=== PATIENT | female | born 2000 | race Caucasian/White ===

== ENCOUNTER 2019-05-25 08:42 | Inpatient (IN) ==
[2019-05-25] MEDS ORDERED: OXYTOCIN 30 UNITS/500 ML BAG IV PRN ×2 (09:14→16:55)
--- NOTE | 2019-05-25 09:20 | Obstetrical Progress Note ---
Date of Service May 25, 2019 Physical Exam Physical Exam: Admit Note 18 F P0000 at 40 weeks with SROM clear fluid at 6 AM this morning and presenting with active labor. GBS is negative. Cervix is 4-5/100/0/vertex. Fluid is clear. Pataient to be admitted and plans for epidural. Results & Data ([facility]) Vital Signs (Past 12 Hours) Vital Signs Pulse BP 05/25/19 08:55 85 125/63
[2019-05-25] MEDS: LACTATED RINGER'S 1,000 ML IV PRN ×2 (09:25→10:32)
[2019-05-25] MEDS ORDERED: fentaNYL citrate 100 MCG/2 ML VIAL ONE (09:29)
[2019-05-25] MEDS ORDERED: ePHEDrine sulfate 50 MG/ML AMP ONE (09:29)
[2019-05-25] MEDS ORDERED: BUPIVACAINE 0.25% 30 ML VIAL ONE (09:30)
[2019-05-25] MEDS ORDERED: fentaNYL 2MCG/ML ROPIV 1.25MG/ML 100 ML BAG EPI ONE (09:30)
[2019-05-25 09:34] LABS: Hemoglobin 11.2 g/dL (12.0-16.0); Mean Corpuscular Volume 88.6 fL (80-100); Mean Platelet Volume 9.1 fL (7.4-10.4); Platelet Count 197 K/uL (130-400); RDW Coefficient of Variation 13.1 % (11.5-14.5); RDW Standard Deviation 42.5 fL (36.4-46.3); Red Blood Count 3.61 M/uL (4.2-5.4); White Blood Count 11.64 K/uL (4.8-10.8)
[2019-05-25] MEDS ORDERED: PROMETHAZINE HCL 6.25 MG in SODIUM CHLORIDE 0.9% 50 ML IV PRN (10:45)
[2019-05-25] MEDS ORDERED: fentaNYL 2MCG/ML ROPIV 1.25MG/ML 100 ML BAG EPI PRN (10:45)
[2019-05-25] MEDS ORDERED: NALOXONE HCL 1 MG in SODIUM CHLORIDE 0.9% 1000ML 1,000 ML IV PRN (10:45)
[2019-05-25] MEDS ORDERED: DiphenhydrAMINE HCL 50 MG/ML VIAL IV PRN (10:45)
[2019-05-25] MEDS ORDERED: NALBUPHINE HCL INJ 10 MG/ML AMP IV PRN (10:45)
[2019-05-25] MEDS ORDERED: ONDANSETRON INJ 2 MG/ML 2 ML VIAL IV PRN (10:45)
[2019-05-25] MEDS ORDERED: ePHEDrine sulfate 50 MG/ML AMP IV PRN (10:45)
[2019-05-25] MEDS ORDERED: NALOXONE HCL 0.4 MG/1 ML VIAL/CARP IV PRN (10:45)
--- NOTE | 2019-05-25 10:45 | Anesthesiology Consultation ---
Date of Service May 25, 2019 Assessment & Plan (1) Encounter for pre-operative examination: Chart Review Chart Review: Acceptable Risk for Surgery and Patient NOT seen in Pre Admission Testing Consults Requested none ASA ASA2 Proposed Anesthesia Anesthesia Type: Labor Epidural History Height/Weight Height: 5 ft 7 in Weight: 103.873 kg Allergies Allergy/AdvReac Type Severity Reaction Status Date / Time effie Allergy Numbness Verified 05/25/19 09:12 Medications Home Medications Medication Instructions Recorded Confirmed Last Taken vit-iron fum-folic ac 1 tab PO DAILY 05/25/19 05/25/19 05/24/19 11:00 [ Vitamin] Active Medications Generic Name Dose Route Start Last Admin Trade Name Freq PRN Reason Stop Dose Admin Lactated Ringer's 1,000 mls @ 125 mls/hr 05/25/19 09:14 05/25/19 10:32 Lr IV 05/27/19 09:13 125 mls/hr .Q8H PRN Administration L&D Protocol Protocol Social History Smoking Status: Never smoker Hx Alcohol Use: No Hx Substance Use: No Physical Exam Vital Signs Last Vital Signs Temp 37.0 C 05/25/19 10:13 Pulse 91 H 05/25/19 10:39 Resp 20 05/25/19 10:40 BP 108/55 L 05/25/19 10:39 Pulse Ox 99 05/25/19 10:39 Testing Laboratory Results 05/25/19 09:24
--- NOTE | 2019-05-25 16:53 | Delivery Summary ---
Vaginal Delivery Summary Date of Service May 25, 2019 Vaginal Delivery Summary Delivery Note live male HERIBERTO over intact perineum with delayed cord clamping and Apgars 8/9 weight pending. Cord blood obtained and placenta delivered spontaneously and intact. No tears. EBL 100 ml. Bladder drained 100 ml. concentrated urine. Final sponge and instrument count are correct. Mom and baby stable.
[2019-05-25] MEDS ORDERED: ACETAMINOPHEN 325 MG TAB PO PRN (16:55)
[2019-05-25] MEDS ORDERED: bisacodyL 10 MG SUPP PR PRN (16:55)
[2019-05-25] MEDS ORDERED: DIPHTHERIA/TETANUS/PERTUSSIS 0.5 ML SYR/VIAL IM ONE (16:55)
[2019-05-25] MEDS ORDERED: HYDROCORTISONE ACETATE 25 MG SUPP PR PRN (16:55)
[2019-05-25] MEDS ORDERED: SUPERCREAM 0.870% 15 GM JAR EXT PRN (16:55)
--- NOTE | 2019-05-25 17:16 | Anesthesia Procedure Note ---
Date of Service May 25, 2019 Anesthesia Post Epidural Note Vital Signs Vital Signs: Temp Pulse Resp BP Pulse Ox 37.2 C 88 18 132/62 94 05/25/19 14:58 05/25/19 17:09 05/25/19 16:40 05/25/19 17:09 05/25/19 16:29 Pain Intensity Abdomen: Pain Intensity: 3 Notes Mental Status: alert / awake / arousable Nausea / Vomiting: adequately controlled Pain: adequately controlled Airway Patency, RR, SpO2: stable & adequate BP & HR: stable & adequate Hydration State: stable & adequate Neuraxial Anesthesia: was administered and sensory block is resolving Anesthetic Complications: no major complications apparent and Pt Satisfied with anesthetic care Epidural: Removed without complications and With tip intact
[2019-05-25] MEDS: IBUPROFEN 600 MG TAB PO PRN (17:37)
[2019-05-25] MEDS: BENZOCAINE 20% AER SPR 82.5 GM CAN EXT PRN (19:47)
[2019-05-25] MEDS: DOCUSATE SODIUM 100 MG CAP PO SCH (20:16)
[2019-05-26 06:27] LABS: Hematocrit (blood only) 29.1 % (37-47); Mean Corpuscular Hemoglobin 30.8 pg (25-34); Mean Corpuscular Hgb Conc 34.4 g/dL (32-36); Mean Corpuscular Volume 89.5 fL (80-100); Mean Platelet Volume 9.3 fL (7.4-10.4); Platelet Count 202 K/uL (130-400); RDW Coefficient of Variation 13.5 % (11.5-14.5); RDW Standard Deviation 43.5 fL (36.4-46.3); Red Blood Count 3.25 M/uL (4.2-5.4); White Blood Count 13.18 K/uL (4.8-10.8)
[2019-05-26] MEDS: PRENATAL VITAMIN 1 TAB PO SCH (07:48)
[2019-05-26] MEDS: DOCUSATE SODIUM 100 MG CAP PO SCH ×2 (07:48→20:51)
[2019-05-26] MEDS: IBUPROFEN 600 MG TAB PO PRN ×3 (07:48→23:37)
[2019-05-26] MEDS ORDERED: NON-FORMULARY MEDICATION (Prenatal Vit-Iron Fum-Folic Ac [Prenatal Vitamin] 1 TAB) PO SCH (09:00)
--- NOTE | 2019-05-26 09:18 | Obstetrical Progress Note ---
Date of Service May 26, 2019 Assessment & Plan Admission and Anticipated Discharge Date Admission Date: May 25, 2019 Physical Exam Constitutional: WD/WN, vitals as above comfortable abdomen soft and non- tender fundus firm ambulating well tolerating diet and passing gas no edema neg Mundo's tent d/c in AM Results & Data ([facility]) Vital Signs (Past 12 Hours) Vital Signs Temp Pulse Pulse Resp BP Pulse Ox 05/26/19 07:53 36.6 C 102 H 17 123/74 99 05/26/19 04:00 37.0 C 95 H 18 135/70 05/26/19 00:00 37.0 C 92 H 18 136/70 Laboratory Results 05/25/19 05/26/19 09:24 06:08 WBC 11.64 H 13.18 H RBC 3.61 L 3.25 L Hgb 11.2 L 10.0 L Hct 32.0 L 29.1 L MCV 88.6 89.5 MCH 31.0 30.8 MCHC 35.0 34.4 RDW Std Deviation 42.5 43.5 RDW Coeff of Yas 13.1 13.5 Plt Count 197 202 MPV 9.1 9.3
[2019-05-26] MEDS ORDERED: bisacodyL 5 MG TABEC PO SCH (20:00)
[2019-05-27 06:51] LABS: Hematocrit (blood only) 30.5 % (37-47); Hemoglobin 10.3 g/dL (12.0-16.0)
--- NOTE | 2019-05-27 08:33 | Obstetrical Progress Note ---
Date of Service May 27, 2019 Assessment & Plan Admission and Anticipated Discharge Date Admission Date: May 25, 2019 Physical Exam Physical Exam: doing well abdomen soft non-tender fundus firm no edema neg Mundo's passing gas for discharge today Results & Data ([facility]) Vital Signs (Past 12 Hours) Vital Signs Temp Pulse Resp BP 05/26/19 23:30 36.8 C 83 18 128/74 05/26/19 20:45 36.5 C 85 20 123/73 Laboratory Results 05/25/19 05/26/19 05/27/19 09:24 06:08 06:23 WBC 11.64 H 13.18 H RBC 3.61 L 3.25 L Hgb 11.2 L 10.0 L 10.3 L Hct 32.0 L 29.1 L 30.5 L MCV 88.6 89.5 MCH 31.0 30.8 MCHC 35.0 34.4 RDW Std Deviation 42.5 43.5 RDW Coeff of Yas 13.1 13.5 Plt Count 197 202 MPV 9.1 9.3
[2019-05-27] MEDS: DOCUSATE SODIUM 100 MG CAP PO SCH (09:10)
[2019-05-27] MEDS: IBUPROFEN 600 MG TAB PO PRN (09:11)
[2019-05-27] MEDS: PRENATAL VITAMIN 1 TAB PO SCH (09:11)
[2019-05-27] MEDS: BENZOCAINE 20% AER SPR 82.5 GM CAN EXT PRN (10:39)
== END 2019-05-27 10:48 | disposition home or self-care (01) | DRG 807 ==
LOC: OPB 08:42 → 4S1 08:51 → 4S2 18:50